=== PATIENT | male | born 1940 | race Caucasian/White ===

== ENCOUNTER → 2024-11-23 13:47 | Outpatient (CLI) | payer MEDICARE, SELFPAY ==
--- NOTE | 2024-11-23 | DI.RAD.S_ITS ---
PROCEDURE: FL BARIUM SWALLOW INDICATIONS: Dysphagia, unspecified COMPARISON: None. FINDINGS: Function: There is normal esophageal peristalsis. There were rare tertiary contractions. There was significant gastroesophageal reflux. There was a rest and retention at the distal esophageal level moderate-sized hiatus hernia. There is obviously narrowing and stenosis of the distal esophagus greater than 13 mm. Morphology: Air-contrast images demonstrate normal mucosal morphology. Single contrast views show no esophageal strictures, extrinsic mass effects, or diverticula. Limited images of the stomach demonstrate normal appearance. IMPRESSION: Distal esophageal narrowing confirmed with arrest and lack of progress of barium tablet into the stomach. Significant reflux and moderate-sized hiatus hernia. Dictated by: Ky Narvaez M.D. on 11/23/2024 at 15:34 Approved by: Ky Narvaez M.D. on 11/23/2024 at 16:05
== END ==
PROVIDERS: PCP Internal Medicine
DX: R13.10 Dysphagia, unspecified (principal); K21.9 Gastro-esophageal reflux disease without esophagitis; K44.9 Diaphragmatic hernia without obstruction or gangrene
CPT/HCPCS: 74220